=== PATIENT | male | born 1980 | race Caucasian/White ===

== ENCOUNTER 2018-03-29 15:40 | Emergency (ER) | payer BC ==
[~2018-03-29] VITALS: Ht 185.4 cm; Wt 112.0 kg
[2018-03-29] MEDS ORDERED: ACETAMINOPHEN 325 MG TAB PO ONE (16:15)
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
[2018-03-29 17:02] VITALS: BP 160/90
== END 2018-03-29 17:04 | disposition home or self-care (01) ==
LOC: FSED 15:40
DX: M54.6 Pain in thoracic spine (principal); M54.5 Low back pain; V53.5XXA Driver of pick-up truck or van injured in collision with car, pick-up truck or van in traffic accident, initial encounter; Y92.488 Other paved roadways as the place of occurrence of the external cause
CPT/HCPCS: 72072; 72100; 99283

== ENCOUNTER 2020-06-21 10:55 | Emergency (ER) | payer BC ==
[~2020-06-21] VITALS: Ht 185.4 cm; Wt 109.1 kg
[2020-06-21] MEDS ORDERED: PIPER-TAZ 3.375 GM 50 ML ONE (12:21)
[2020-06-21] MEDS ORDERED: VANCOMYCIN 1GM/NS 250 ML 500 ML ONE (12:21)
[2020-06-21] MEDS ORDERED: SODIUM CHLORIDE 0.9% 1000ML 1,000 ML ONE (12:29)
[2020-06-21] MEDS ORDERED: PIPER-TAZ 3.375 GM 50 ML IV ONE (12:30)
[2020-06-21] MEDS ORDERED: INSULIN REGULAR, HUMAN 100 UNIT/1 ML 3ML VIAL SQ ONE (12:30)
[2020-06-21] MEDS ORDERED: SODIUM CHLORIDE 0.9% 1000ML 1,000 ML IV SCH (12:30)
[2020-06-21] MEDS ORDERED: VANCOMYCIN 300 ML IV ONE (12:45)
[2020-06-21 13:11] LABS: BASOPHILS # (AUTO) 0.1 (0.0-0.1); BASOPHILS % 0.5 % (0.0-1.0); EOSINOPHILS # (AUTO) 0.2 (0.0-0.4); EOSINOPHILS % 1.4 % (0.0-6.0); HEMATOCRIT 38.5 % (38.2-49.6); HEMOGLOBIN 13.4 g/dL (14.0-18.0); LYMPHOCYTES # (AUTO) 1.6 (1.0-3.2); LYMPHOCYTES % 14.2 % (18.0-39.1); MEAN CORPUSCULAR HEMOGLOBIN 28.8 pg (28-32); MEAN CORPUSCULAR HGB CONC 34.8 g/dL (31-35); MEAN CORPUSCULAR VOLUME 82.6 fL (81-99); MONOCYTES % 8.4 % (4.4-11.3); NEUTROPHILS # (AUTO) 8.6 (2.1-6.9); PLATELET COUNT 370 x10e3/uL (140-360); RED BLOOD COUNT 4.66 x10e6/uL (4.3-5.7); RED CELL DISTRIBUTION WIDTH 11.8 % (11.7-14.4)
[2020-06-21] MEDS ORDERED: CLINDAMYCIN HC300 MG PO (15:13)
[2020-06-21] MEDS ORDERED: LEVOFLOXACIN250 MG PO (15:15)
[2020-06-21] MEDS ORDERED: TYLENOL # 31 EA PO (15:17)
[2020-06-21] MEDS ORDERED: NOVOLIN 70100 UNIT/3 SC (15:20)
[2020-06-21] MEDS ORDERED: BROMFED DM COU118 ML PO (15:22)
[2020-06-21] MEDS ORDERED: SODIUM CHLORIDE 0.9% 50ML 50 ML ONE (17:41)
[2020-06-21] MEDS ORDERED: IOPAMIDOL 370 MG/ML 200 ML INFUS..BTL INJ ONE (17:41)
== END 2020-06-21 15:46 | disposition home or self-care (01) ==
LOC: FSED 11:07
DX: L03.315 Cellulitis of perineum (principal); L03.317 Cellulitis of buttock; E11.65 Type 2 diabetes mellitus with hyperglycemia; E11.621 Type 2 diabetes mellitus with foot ulcer; M54.9 Dorsalgia, unspecified; G89.29 Other chronic pain
CPT/HCPCS: 36415; 72072; 72193; 82948; 85025; 87040; 99284; J1817; J2543; J3370; J7030; Q9967

== ENCOUNTER 2020-06-22 09:03 | Emergency (ER) | payer BC ==
[~2020-06-22] VITALS: Ht 185.4 cm; Wt 108.9 kg
[~2020-06-22 09:03] MED LIST: BROMFED DM COU118 ML PO; CLINDAMYCIN HC300 MG PO; LEVOFLOXACIN250 MG PO; NOVOLIN 70100 UNIT/3 SC; TYLENOL # 31 EA PO
[2020-06-22] MEDS ORDERED: PIPER-TAZ 3.375 GM 50 ML IV ONE (09:21)
[2020-06-22] MEDS ORDERED: ONDANSETRON HCL INJ 2MG/ML 2ML 2 MG/ML VIAL IV ONE (09:21)
[2020-06-22] MEDS ORDERED: MORPHINE SULFATE INJ 4 MG/ML INJ 1ML IV ONE (09:21)
[2020-06-22] MEDS ORDERED: SODIUM CHLORIDE 0.9% 1000ML 1,000 ML IV STA (09:21)
[2020-06-22] MEDS ORDERED: ONDANSETRON HCL INJ 2MG/ML 2ML 2 MG/ML VIAL IV PRN (09:30)
[2020-06-22] MEDS ORDERED: MORPHINE SULFATE INJ 4 MG/ML INJ 1ML IV PRN (09:30)
[2020-06-22] MEDS ORDERED: MORPHINE SULFATE 2 MG/ML SYR 1ML IV PRN (09:30)
[2020-06-22] MEDS ORDERED: ASPIRIN 81 MG CHEW TAB PO ONE (09:30)
[2020-06-22 09:45] LABS: BASOPHILS # (AUTO) 0.1 (0.0-0.1); BASOPHILS % 0.5 % (0.0-1.0); EOSINOPHILS # (AUTO) 0.2 (0.0-0.4); EOSINOPHILS % 1.7 % (0.0-6.0); HEMATOCRIT 39.3 % (38.2-49.6); HEMOGLOBIN 13.3 g/dL (14.0-18.0); LYMPHOCYTES # (AUTO) 1.6 (1.0-3.2); LYMPHOCYTES % 15.4 % (18.0-39.1); MEAN CORPUSCULAR HEMOGLOBIN 28.8 pg (28-32); MEAN CORPUSCULAR HGB CONC 33.8 g/dL (31-35); MEAN CORPUSCULAR VOLUME 85.1 fL (81-99); MONOCYTES # (AUTO) 0.9 (0.2-0.8); MONOCYTES % 8.3 % (4.4-11.3); NEUTROPHILS # (AUTO) 7.6 (2.1-6.9); NEUTROPHILS % 73.2 % (38.7-80.0); PLATELET COUNT 359 x10e3/uL (140-360); RED BLOOD COUNT 4.62 x10e6/uL (4.3-5.7); RED CELL DISTRIBUTION WIDTH 11.7 % (11.7-14.4)
[2020-06-22 09:59] LABS: ABG PCO2 36 mmHg (35-45); ABG PH 7.43 (7.35-7.45); ABG PO2 83 mmHg (80-105)
[2020-06-22 10:00] LABS: ABG HCO3 24 mmol/L (22-26); ABG TCO2 25
[2020-06-22] MEDS ORDERED: DEXTROSE 50% SYRINGE 50 ML IV PRN (10:00)
[2020-06-22 10:11] LABS: ALANINE AMINOTRANSFERASE 10 IU/L (0-55); ALBUMIN 3.1 g/dL (3.5-5.0); ALBUMIN/GLOBULIN RATIO 0.7 (0.8-2.0); ALKALINE PHOSPHATASE 89 IU/L (40-150); ANION GAP 13.7 mmol/L (8-16); BLOOD UREA NITROGEN 11 mg/dL (7-26); BUN/CREATININE RATIO 10 (6-25); CALCIUM 9.1 mg/dL (8.4-10.2); CARBON DIOXIDE 26 mmol/L (22-29); CHLORIDE 99 mmol/L (98-107); CREATININE, SERUM 1.05 mg/dL (0.72-1.25); EST GLOMERULAR FILTRATION RATE > 60 ML/MIN (60-); POTASSIUM 3.7 mmol/L (3.5-5.1); SODIUM 135 mmol/L (136-145)
[2020-06-22 10:12] LABS: GLUCOSE 429 mg/dL (74-118)
[2020-06-22 10:27] LABS: CREATINE KINASE 40 IU/L (30-200)
[2020-06-22] MEDS ORDERED: SODIUM CHLORIDE 0.9% 50ML 50 ML ONE (10:53)
[2020-06-22] MEDS ORDERED: IOPAMIDOL 370 MG/ML 200 ML INFUS..BTL INJ ONE (10:53)
[2020-06-22] MEDS ORDERED: INSULIN REGULAR, HUMAN 100 UNIT/1 ML 3ML VIAL SQ SCH (11:30)
[2020-06-22 12:48] VITALS: BP 142/86
== END 2020-06-22 12:59 | disposition other institution (70) ==
LOC: ER 09:10 → ERHOLD 09:48 → UNDOADMIN 09:48 → ER 12:59
DX: N49.3 Fournier gangrene (principal); E11.65 Type 2 diabetes mellitus with hyperglycemia; M54.9 Dorsalgia, unspecified; G89.29 Other chronic pain; Z20.828 Contact with and (suspected) exposure to other viral communicable diseases
CPT/HCPCS: 36415; 36600; 72193; 80053; 82550; 82553; 82805; 83605; 84484; 85025; 99284; J1817; J2270; J2405; J2543; J7030; Q9967; U0002

== ENCOUNTER 2020-08-22 23:59 | Emergency (ER) | payer BC ==
[~2020-08-22] VITALS: Ht 185.4 cm; Wt 108.9 kg
[2020-08-23] MEDS ORDERED: SODIUM CHLORIDE 0.9% 1000ML 1,000 ML IV SCH (01:30)
[2020-08-23] MEDS ORDERED: SODIUM CHLORIDE 0.9% 1000ML 1,000 ML ONE (01:32)
[2020-08-23] MEDS ORDERED: AMPICILLIN SOD/SULBACTAM 3 GM VIAL ONE (01:32)
[2020-08-23] MEDS ORDERED: CLINDAMYCIN HC300 MG PO (02:17)
[2020-08-23] MEDS ORDERED: LEVOFLOXACIN250 MG PO (02:24)
[2020-08-23] MEDS ORDERED: TRAZODONE HCL50 MG PO (02:25)
[2020-08-23] MEDS ORDERED: LANTUS100 UNIT/1 SQ (02:25)
[2020-08-23] MEDS ORDERED: NOVOLOG100 UNITS1 SQ (02:27)
[2020-08-23] MEDS ORDERED: AMPICILLIN SOD/SULBACTAM 1.5GM 1.5 G in AMPICILLIN SOD/SULBACTAM 1.5GM 50 ML IV ONE (06:00)
== END 2020-08-23 02:55 | disposition home or self-care (01) ==
LOC: FSED 08-23 00:41
DX: E11.621 Type 2 diabetes mellitus with foot ulcer (principal); E11.65 Type 2 diabetes mellitus with hyperglycemia; E11.22 Type 2 diabetes mellitus with diabetic chronic kidney disease; I12.9 Hypertensive chronic kidney disease with stage 1 through stage 4 chronic kidney disease, or unspecified chronic kidney disease; N18.9 Chronic kidney disease, unspecified; L97.429 Non-pressure chronic ulcer of left heel and midfoot with unspecified severity; L97.419 Non-pressure chronic ulcer of right heel and midfoot with unspecified severity; G47.00 Insomnia, unspecified; D64.9 Anemia, unspecified; Z76.0 Encounter for issue of repeat prescription
CPT/HCPCS: 73630; 80053; 81003; 85025; 99284; J0295 ×2; J7030

== ENCOUNTER → 2020-11-13 | Outpatient (CLI) | payer BC ==
[~2020-11-13] MED LIST changes: +LANTUS100 UNIT/1 SQ; +NOVOLOG100 UNITS1 SQ; +TRAZODONE HCL50 MG PO
== END ==
LOC: US 13:13
PROVIDERS: ATTEND Internal Medicine
DX: R19.01 Right upper quadrant abdominal swelling, mass and lump (principal); K76.0 Fatty (change of) liver, not elsewhere classified
CPT/HCPCS: 71046; 76700

== ENCOUNTER 2021-01-18 07:45 | Emergency (ER) | payer BC ==
[~2021-01-18] VITALS: Ht 185.4 cm; Wt 108.9 kg
[2021-01-18] MEDS ORDERED: CLINDAMYCIN PHOS 900MG/ 50ML 50 ML IV STA (07:59)
[2021-01-18] MEDS ORDERED: KETOROLAC TROMETHAMINE 30 MG/ML VIAL IV STA (08:03)
[2021-01-18] MEDS ORDERED: DEXAMETHASONE SOD PHOS 10 MG/1 ML VIAL IV ONE (08:15)
[2021-01-18] MEDS ORDERED: ONDANSETRON HCL INJ 2MG/ML 2ML 2 MG/ML VIAL IV STA (08:24)
[2021-01-18 08:27] LABS: BASOPHILS # (AUTO) 0.1 (0.0-0.1); BASOPHILS % 0.5 % (0.0-1.0); EOSINOPHILS # (AUTO) 0.3 (0.0-0.4); EOSINOPHILS % 1.7 % (0.0-6.0); HEMATOCRIT 30.7 % (38.2-49.6); HEMOGLOBIN 10.5 g/dL (14.0-18.0); LYMPHOCYTES # (AUTO) 2.1 (1.0-3.2); LYMPHOCYTES % 11.8 % (18.0-39.1); MEAN CORPUSCULAR HEMOGLOBIN 28.3 pg (28-32); MEAN CORPUSCULAR HGB CONC 34.2 g/dL (31-35); MEAN CORPUSCULAR VOLUME 82.7 fL (81-99); MONOCYTES # (AUTO) 1.3 (0.2-0.8); MONOCYTES % 7.4 % (4.4-11.3); NEUTROPHILS # (AUTO) 13.6 (2.1-6.9); PLATELET COUNT 370 x10e3/uL (140-360); RED BLOOD COUNT 3.71 x10e6/uL (4.3-5.7); RED CELL DISTRIBUTION WIDTH 12.4 % (11.7-14.4)
[2021-01-18 08:46] LABS: ANION GAP 15.7 mmol/L (8-16); CALCIUM 9.1 mg/dL (8.4-10.2); CREATININE, SERUM 1.75 mg/dL (0.72-1.25); POTASSIUM 3.7 mmol/L (3.5-5.1)
[2021-01-18] MEDS ORDERED: CLEOCIN HCL150 MG PO (09:23)
[2021-01-18] MEDS ORDERED: ONDANSETRON ODT4 MG PO (09:23)
[2021-01-18] MEDS ORDERED: CEFDINIR300 MG PO (09:23)
[2021-01-18] MEDS ORDERED: LIDOPATCH1 EACH TOP (09:23)
[2021-01-18] MEDS ORDERED: CEFEPIME 1 GM in SODIUM CHLORIDE 0.9% 50ML 50 ML IV SCH (21:00)
== END 2021-01-18 10:18 | disposition home or self-care (01) ==
LOC: ER 08:10
DX: E11.621 Type 2 diabetes mellitus with foot ulcer (principal); L97.519 Non-pressure chronic ulcer of other part of right foot with unspecified severity; Z79.4 Long term (current) use of insulin; M54.9 Dorsalgia, unspecified
CPT/HCPCS: 36415; 72070; 72100; 73620; 80048; 85025; 99284; J0692; J1100; J1885; J2405

== ENCOUNTER 2021-02-07 08:41 | Emergency (ER) | payer BC ==
[~2021-02-07] VITALS: Ht 185.4 cm; Wt 117.9 kg
[~2021-02-07 08:41] MED LIST changes: +CEFDINIR300 MG PO; +CLEOCIN HCL150 MG PO; +LIDOPATCH1 EACH TOP; +ONDANSETRON ODT4 MG PO
[2021-02-07] MEDS ORDERED: DOXYCYCLINE HY100 MG PO (09:13)
[2021-02-07] MEDS ORDERED: PROBIOTIC & AC1 EACH PO (09:13)
[2021-02-07] MEDS ORDERED: CLEOCIN HCL300 MG PO (09:13)
[2021-02-07] MEDS ORDERED: CLINDAMYCIN PHOS 900MG/ 50ML 50 ML IV ONE (09:15)
[2021-02-07] MEDS ORDERED: CLINDAMYCIN PHOS 300MG/2ML VIAL ONE ×2 (09:21→09:23)
[2021-02-07] MEDS ORDERED: CLINDAMYCIN 300MG 50 ML IV ONE (09:23)
== END 2021-02-07 09:57 | disposition home or self-care (01) ==
LOC: FSED 09:00
DX: E11.621 Type 2 diabetes mellitus with foot ulcer (principal); E11.65 Type 2 diabetes mellitus with hyperglycemia; I12.9 Hypertensive chronic kidney disease with stage 1 through stage 4 chronic kidney disease, or unspecified chronic kidney disease; Z79.4 Long term (current) use of insulin; E11.22 Type 2 diabetes mellitus with diabetic chronic kidney disease; N18.9 Chronic kidney disease, unspecified
CPT/HCPCS: 80053; 85025; 99283

== ENCOUNTER 2021-02-09 15:16 | Inpatient (IN) | payer BC ==
[~2021-02-09] VITALS: Ht 185.4 cm; Wt 117.9 kg
[~2021-02-09 15:16] MED LIST changes: +CLEOCIN HCL300 MG PO; +DOXYCYCLINE HY100 MG PO; +PROBIOTIC & AC1 EACH PO
[2021-02-09] MEDS ORDERED: PIPERACILLIN/TAZOBACTAM 3.375 GM in SODIUM CHLORIDE 0.9% 50ML 50 ML IV SCH (18:00)
[2021-02-09] MEDS ORDERED: DEXTROSE 50% SYRINGE 50 ML IV PRN ×2 (18:00→19:15)
[2021-02-09] MEDS ORDERED: LINEZOLID 600 MG/D5W 300ML 300 ML IV SCH (18:00)
[2021-02-09 18:20] VITALS: BP 167/73
[2021-02-09 18:21] VITALS: BP 167/73
[2021-02-09 18:47] VITALS: BP 167/73
[2021-02-09] MEDS ORDERED: ACETAMINOPHEN 325 MG TAB PO PRN (19:15)
[2021-02-09] MEDS ORDERED: SODIUM CHLORIDE 0.9% 1000ML 1,000 ML IV SCH (19:15)
[2021-02-09 19:26] LABS: BASOPHILS # (AUTO) 0.1 (0.0-0.1); BASOPHILS % 0.4 % (0.0-1.0); EOSINOPHILS # (AUTO) 0.2 (0.0-0.4); EOSINOPHILS % 1.1 % (0.0-6.0); HEMATOCRIT 25.7 % (38.2-49.6); HEMOGLOBIN 8.4 g/dL (14.0-18.0); LYMPHOCYTES # (AUTO) 1.4 (1.0-3.2); LYMPHOCYTES % 8.6 % (18.0-39.1); MEAN CORPUSCULAR HEMOGLOBIN 27.8 pg (28-32); MEAN CORPUSCULAR HGB CONC 32.7 g/dL (31-35); MEAN CORPUSCULAR VOLUME 85.1 fL (81-99); MONOCYTES # (AUTO) 1.9 (0.2-0.8); MONOCYTES % 11.6 % (4.4-11.3); NEUTROPHILS # (AUTO) 12.3 (2.1-6.9); NEUTROPHILS % 77.4 % (38.7-80.0); PLATELET COUNT 356 x10e3/uL (140-360); RED BLOOD COUNT 3.02 x10e6/uL (4.3-5.7); RED CELL DISTRIBUTION WIDTH 12.8 % (11.7-14.4)
[2021-02-09 19:49] LABS: ALBUMIN 2.8 g/dL (3.5-5.0); ANION GAP 15.7 mmol/L (8-16); CALCIUM 8.3 mg/dL (8.4-10.2); CREATININE, SERUM 1.89 mg/dL (0.72-1.25); POTASSIUM 3.7 mmol/L (3.5-5.1)
[2021-02-09 19:50] LABS: ALBUMIN/GLOBULIN RATIO 0.6 (0.8-2.0)
[2021-02-09 19:54] VITALS: BP 154/62
[2021-02-09] MEDS: PIPERACILLIN/TAZOBACTAM 3.375 GM in SODIUM CHLORIDE 0.9% 50ML 50 ML IV SCH (20:00)
[2021-02-09] MEDS: LINEZOLID 600 MG/D5W 300ML 300 ML IV SCH (20:07)
[2021-02-09 21:00] VITALS: BP 154/62
[2021-02-09] MEDS: INSULIN LISPRO 100 UNIT/1 ML 3ML VIAL SQ SCH (21:00)
[2021-02-09] MEDS ORDERED: INSULIN LISPRO 100 UNIT/1 ML 3ML VIAL SQ SCH (21:00)
[2021-02-10] VITALS (7 sets, daily range): BP systolic 141–166; BP diastolic 63–81
[2021-02-10] MEDS: PIPERACILLIN/TAZOBACTAM 3.375 GM in SODIUM CHLORIDE 0.9% 50ML 50 ML IV SCH ×4 (02:00→20:00)
[2021-02-10 05:11] LABS: BASOPHILS # (AUTO) 0.1 (0.0-0.1); BASOPHILS % 0.5 % (0.0-1.0); EOSINOPHILS # (AUTO) 0.4 (0.0-0.4); EOSINOPHILS % 2.5 % (0.0-6.0); HEMOGLOBIN 8.6 g/dL (14.0-18.0); LYMPHOCYTES # (AUTO) 1.7 (1.0-3.2); LYMPHOCYTES % 9.6 % (18.0-39.1); MEAN CORPUSCULAR HEMOGLOBIN 28.1 pg (28-32); MEAN CORPUSCULAR HGB CONC 33.1 g/dL (31-35); MONOCYTES % 11.5 % (4.4-11.3); PLATELET COUNT 384 x10e3/uL (140-360); RED BLOOD COUNT 3.06 x10e6/uL (4.3-5.7); RED CELL DISTRIBUTION WIDTH 12.9 % (11.7-14.4)
[2021-02-10 05:34] LABS: ALBUMIN 2.7 g/dL (3.5-5.0); ALBUMIN/GLOBULIN RATIO 0.6 (0.8-2.0); ANION GAP 15.7 mmol/L (8-16); CALCIUM 8.4 mg/dL (8.4-10.2); CREATININE, SERUM 1.86 mg/dL (0.72-1.25); POTASSIUM 3.7 mmol/L (3.5-5.1)
[2021-02-10] MEDS ORDERED: DEXAMETHASONE SOD PHOS INJ 4 MG/ML VIAL ONE (07:24)
[2021-02-10] MEDS ORDERED: BUPIVACAINE HCL 0.5% INJ 30 ML VIAL INJ ONE (07:24)
[2021-02-10] MEDS: INSULIN LISPRO 100 UNIT/1 ML 3ML VIAL SQ SCH ×4 (07:30→21:00)
[2021-02-10] MEDS: INSULIN ASPART 70/30 100 UNITS/ML VIAL SC SCH ×3 (07:30→16:30)
[2021-02-10] MEDS ORDERED: BENAZEPRIL HCL 10 MG TAB PO SCH (09:00)
[2021-02-10] MEDS ORDERED: AMLODIPINE BESYLATE 10 MG TAB PO SCH (09:00)
[2021-02-10] MEDS ORDERED: METOCLOPRAMIDE HCL 10 MG/2ML VIAL ONE (11:55)
[2021-02-10] MEDS ORDERED: PROPOFOL IV EMULSION 10 MG/ML 20 ML VIAL ONE (11:55)
[2021-02-10] MEDS ORDERED: POVIDONE IODINE 0.05% 0.05 % ML PO ONE (11:55)
[2021-02-10] MEDS ORDERED: SEVOFLURANE INHAL SOLN 250 ML PEN BTL ONE (11:55)
[2021-02-10] MEDS ORDERED: ONDANSETRON HCL INJ 2MG/ML 2ML 2 MG/ML VIAL ONE (11:55)
[2021-02-10] MEDS ORDERED: LIDOCAINE HCL 2% LOCAL INJ 5 ML SDV VIAL INJ ONE (11:55)
[2021-02-10] MEDS ORDERED: FENTANYL CITRATE/PF 100MCG/2 ML INJ ONE (12:11)
[2021-02-10] MEDS ORDERED: MIDAZOLAM HCL 2 MG/2 ML VIAL ONE (12:11)
[2021-02-10] MEDS: LINEZOLID 600 MG/D5W 300ML 300 ML IV SCH ×2 (12:25→21:00)
[2021-02-10] MEDS: HYDROMORPHONE 1MG/1ML INJ IV PRN ×3 (14:26→22:02)
[2021-02-10] MEDS: ONDANSETRON HCL INJ 2MG/ML 2ML 2 MG/ML VIAL IV PRN ×2 (14:28→22:03)
[2021-02-10] MEDS: PROMETHAZINE 12.5MG/ NACL 0.9% 12.5 MG/50 ML BAG IV PRN (18:16)
[2021-02-11] VITALS (8 sets, daily range): BP systolic 132–147; BP diastolic 70–84
[2021-02-11] MEDS: PIPERACILLIN/TAZOBACTAM 3.375 GM in SODIUM CHLORIDE 0.9% 50ML 50 ML IV SCH ×4 (01:38→19:56)
[2021-02-11] MEDS: PROMETHAZINE 12.5MG/ NACL 0.9% 12.5 MG/50 ML BAG IV PRN ×2 (02:29→13:25)
[2021-02-11 05:16] LABS: BASOPHILS # (AUTO) 0.1 (0.0-0.1); BASOPHILS % 0.5 % (0.0-1.0); EOSINOPHILS # (AUTO) 0.4 (0.0-0.4); EOSINOPHILS % 2.5 % (0.0-6.0); HEMOGLOBIN 7.8 g/dL (14.0-18.0); LYMPHOCYTES # (AUTO) 2.1 (1.0-3.2); LYMPHOCYTES % 13.9 % (18.0-39.1); MEAN CORPUSCULAR HEMOGLOBIN 27.9 pg (28-32); MEAN CORPUSCULAR HGB CONC 32.5 g/dL (31-35); MEAN CORPUSCULAR VOLUME 85.7 fL (81-99); MONOCYTES # (AUTO) 1.4 (0.2-0.8); MONOCYTES % 9.4 % (4.4-11.3); NEUTROPHILS # (AUTO) 10.8 (2.1-6.9); NEUTROPHILS % 72.5 % (38.7-80.0); PLATELET COUNT 424 x10e3/uL (140-360); RED CELL DISTRIBUTION WIDTH 13.2 % (11.7-14.4)
[2021-02-11 05:54] LABS: ANION GAP 15.7 mmol/L (8-16); CALCIUM 8.4 mg/dL (8.4-10.2); CREATININE, SERUM 2.21 mg/dL (0.72-1.25); POTASSIUM 3.7 mmol/L (3.5-5.1)
[2021-02-11] MEDS: INSULIN LISPRO 100 UNIT/1 ML 3ML VIAL SQ SCH ×4 (07:30→21:00)
[2021-02-11] MEDS ORDERED: TRESIBA FL100 UNIT/1 SQ (07:39)
[2021-02-11] MEDS: INSULIN ASPART 70/30 100 UNITS/ML VIAL SC SCH ×3 (09:00→15:55)
[2021-02-11] MEDS: SODIUM CHLORIDE 0.9% 1000ML 1,000 ML IV SCH ×2 (09:37→15:30)
[2021-02-11] MEDS: HYDROMORPHONE 1MG/1ML INJ IV PRN ×2 (09:38→21:54)
[2021-02-11] MEDS: LINEZOLID 600 MG/D5W 300ML 300 ML IV SCH ×2 (10:30→21:54)
[2021-02-11] MEDS: HYDROCODONE/APAP 7.5MG-325MG 1 EA TAB PO PRN ×2 (13:25→18:35)
[2021-02-11] MEDS: ONDANSETRON HCL INJ 2MG/ML 2ML 2 MG/ML VIAL IV PRN (21:54)
[2021-02-12] VITALS (9 sets, daily range): BP systolic 119–181; BP diastolic 63–93
[2021-02-12] MEDS ORDERED: FUROSEMIDE INJ 10 MG/ML 4 ML VIAL ONE (00:26)
[2021-02-12] MEDS ORDERED: FUROSEMIDE INJ 10 MG/ML 4 ML VIAL IV ONE ×2 (00:30→09:00)
[2021-02-12] MEDS: PIPERACILLIN/TAZOBACTAM 3.375 GM in SODIUM CHLORIDE 0.9% 50ML 50 ML IV SCH ×4 (01:55→20:26)
[2021-02-12] MEDS: PROMETHAZINE 12.5MG/ NACL 0.9% 12.5 MG/50 ML BAG IV PRN (05:43)
[2021-02-12 06:20] LABS: BASOPHILS # (AUTO) 0.1 (0.0-0.1); BASOPHILS % 0.6 % (0.0-1.0); EOSINOPHILS # (AUTO) 0.6 (0.0-0.4); EOSINOPHILS % 5.3 % (0.0-6.0); HEMATOCRIT 23.4 % (38.2-49.6); HEMOGLOBIN 7.5 g/dL (14.0-18.0); LYMPHOCYTES # (AUTO) 1.5 (1.0-3.2); LYMPHOCYTES % 13.3 % (18.0-39.1); MEAN CORPUSCULAR HEMOGLOBIN 27.7 pg (28-32); MEAN CORPUSCULAR HGB CONC 32.1 g/dL (31-35); MEAN CORPUSCULAR VOLUME 86.3 fL (81-99); MONOCYTES % 8.9 % (4.4-11.3); NEUTROPHILS # (AUTO) 7.7 (2.1-6.9); NEUTROPHILS % 70.4 % (38.7-80.0); PLATELET COUNT 469 x10e3/uL (140-360); RED BLOOD COUNT 2.71 x10e6/uL (4.3-5.7); RED CELL DISTRIBUTION WIDTH 13.4 % (11.7-14.4)
[2021-02-12 06:35] LABS: ANION GAP 14.9 mmol/L (8-16); CALCIUM 7.9 mg/dL (8.4-10.2); CREATININE, SERUM 2.05 mg/dL (0.72-1.25); POTASSIUM 3.9 mmol/L (3.5-5.1)
[2021-02-12] MEDS: INSULIN ASPART 70/30 100 UNITS/ML VIAL SC SCH ×3 (07:30→16:30)
[2021-02-12] MEDS: INSULIN LISPRO 100 UNIT/1 ML 3ML VIAL SQ SCH ×4 (07:30→21:00)
[2021-02-12] MEDS: HYDROMORPHONE 1MG/1ML INJ IV PRN ×6 (08:38→20:26)
[2021-02-12] MEDS: LINEZOLID 600 MG/D5W 300ML 300 ML IV SCH ×2 (09:20→21:34)
[2021-02-12 17:55] LABS: TOTAL VOLUME, URINE 3200 ml/24hr (800-2000)
[2021-02-12 18:01] LABS: CLARITY,URINE CLEAR (CLEAR); COLOR,URINE YELLOW (YELLOW); KETONES,URINE NEGATIVE (NEGATIVE); LEUKOCYTE ESTERASE ,URINE NEGATIVE (NEGATIVE); NITRITE,URINE NEGATIVE (NEGATIVE); PROTEIN,URINE DIPSTICK NEGATIVE (NEGATIVE); URINE UROBILINOGEN 0.2 mg/dL (0.2 - 1)
[2021-02-12 18:20] LABS: TOTAL PROTEIN 24HR, URINE 460.8 mg/24hr (50-100); TOTAL PROTEIN, URINE 14.4 mg/dL (1-14)
[2021-02-12 18:22] LABS: BACTERIA,URINE RARE /HPF; RBC,URINE 0-5 /HPF (0-5); URIC ACID CRYSTALS,URINE MANY (FEW)
[2021-02-12] MEDS: ZOLPIDEM TARTRATE 10 MG TAB PO PRN (20:26)
[2021-02-12] MEDS: ONDANSETRON HCL INJ 2MG/ML 2ML 2 MG/ML VIAL IV PRN (20:26)
[2021-02-13] VITALS (7 sets, daily range): BP systolic 152–170; BP diastolic 65–90
[2021-02-13] MEDS: PIPERACILLIN/TAZOBACTAM 3.375 GM in SODIUM CHLORIDE 0.9% 50ML 50 ML IV SCH ×4 (01:38→20:42)
[2021-02-13] MEDS: HYDROMORPHONE 1MG/1ML INJ IV PRN ×4 (06:05→20:47)
[2021-02-13 06:20] LABS: BASOPHILS # (AUTO) 0.1 (0.0-0.1); BASOPHILS % 0.5 % (0.0-1.0); EOSINOPHILS # (AUTO) 0.6 (0.0-0.4); EOSINOPHILS % 4.6 % (0.0-6.0); HEMATOCRIT 24.9 % (38.2-49.6); LYMPHOCYTES # (AUTO) 1.5 (1.0-3.2); LYMPHOCYTES % 12.1 % (18.0-39.1); MEAN CORPUSCULAR HEMOGLOBIN 27.7 pg (28-32); MEAN CORPUSCULAR HGB CONC 32.1 g/dL (31-35); MEAN CORPUSCULAR VOLUME 86.2 fL (81-99); MONOCYTES % 8.2 % (4.4-11.3); NEUTROPHILS # (AUTO) 8.8 (2.1-6.9); NEUTROPHILS % 72.8 % (38.7-80.0); PLATELET COUNT 490 x10e3/uL (140-360); RED BLOOD COUNT 2.89 x10e6/uL (4.3-5.7); RED CELL DISTRIBUTION WIDTH 13.2 % (11.7-14.4)
[2021-02-13 06:37] LABS: ALBUMIN 2.6 g/dL (3.5-5.0); ALBUMIN/GLOBULIN RATIO 0.5 (0.8-2.0); ANION GAP 15.7 mmol/L (8-16); CALCIUM 8.5 mg/dL (8.4-10.2); CREATININE, SERUM 2.03 mg/dL (0.72-1.25); POTASSIUM 3.7 mmol/L (3.5-5.1)
[2021-02-13 06:59] LABS: % IRON SATURATION 8 % (15-50); IRON 13 ug/dL (65-175); TOTAL IRON BINDING CAPACITY 171 ug/dL (261-478); TRANSFERRIN 122 mg/dL (174-364)
[2021-02-13 07:02] LABS: PHOSPHORUS 3.9 MG/DL (2.3-4.7)
[2021-02-13] MEDS: INSULIN LISPRO 100 UNIT/1 ML 3ML VIAL SQ SCH ×4 (07:30→20:07)
[2021-02-13] MEDS: INSULIN ASPART 70/30 100 UNITS/ML VIAL SC SCH ×3 (07:30→16:30)
[2021-02-13] MEDS: LINEZOLID 600 MG/D5W 300ML 300 ML IV SCH ×2 (10:00→22:18)
[2021-02-13] MEDS ORDERED: FUROSEMIDE INJ 10 MG/ML 4 ML VIAL IV ONE (10:15)
[2021-02-13] MEDS: ONDANSETRON HCL INJ 2MG/ML 2ML 2 MG/ML VIAL IV PRN ×2 (10:15→16:45)
[2021-02-13] MEDS ORDERED: ALTEPLASE RECOMBINANT 2 MG/2 ML VIAL IV PRN (10:30)
[2021-02-13] MEDS: SODIUM FERRIC GLUCONATE COMPLX 125 MG in SODIUM CHLORIDE 0.9% 100 ML 100 ML IV SCH (11:00)
[2021-02-13] MEDS ORDERED: SODIUM CHLORIDE 0.9% 250ML 250 ML ONE (20:40)
[2021-02-13] MEDS: FUROSEMIDE INJ 10 MG/ML 4 ML VIAL IV SCH (20:42)
[2021-02-13] MEDS: PROMETHAZINE 12.5MG/ NACL 0.9% 12.5 MG/50 ML BAG IV PRN (20:47)
[2021-02-13 20:58] LABS: BASOPHILS # (AUTO) 0.1 (0.0-0.1); BASOPHILS % 0.5 % (0.0-1.0); EOSINOPHILS # (AUTO) 0.5 (0.0-0.4); EOSINOPHILS % 4.3 % (0.0-6.0); HEMATOCRIT 26.7 % (38.2-49.6); HEMOGLOBIN 8.7 g/dL (14.0-18.0); LYMPHOCYTES # (AUTO) 2.1 (1.0-3.2); LYMPHOCYTES % 18.2 % (18.0-39.1); MEAN CORPUSCULAR HEMOGLOBIN 27.8 pg (28-32); MEAN CORPUSCULAR HGB CONC 32.6 g/dL (31-35); MEAN CORPUSCULAR VOLUME 85.3 fL (81-99); MONOCYTES # (AUTO) 1.1 (0.2-0.8); NEUTROPHILS # (AUTO) 7.5 (2.1-6.9); NEUTROPHILS % 65.3 % (38.7-80.0); PLATELET COUNT 529 x10e3/uL (140-360); RED BLOOD COUNT 3.13 x10e6/uL (4.3-5.7); RED CELL DISTRIBUTION WIDTH 13.3 % (11.7-14.4)
[2021-02-13 21:16] LABS: ANION GAP 15.3 mmol/L (8-16); CALCIUM 8.3 mg/dL (8.4-10.2); CREATININE, SERUM 1.92 mg/dL (0.72-1.25); POTASSIUM 3.3 mmol/L (3.5-5.1)
[2021-02-13] MEDS: ZOLPIDEM TARTRATE 10 MG TAB PO PRN (22:18)
[2021-02-14] VITALS (7 sets, daily range): BP systolic 135–159; BP diastolic 57–84
[2021-02-14] MEDS: PIPERACILLIN/TAZOBACTAM 3.375 GM in SODIUM CHLORIDE 0.9% 50ML 50 ML IV SCH ×4 (01:55→19:55)
[2021-02-14] MEDS: ONDANSETRON HCL INJ 2MG/ML 2ML 2 MG/ML VIAL IV PRN ×3 (01:55→19:56)
[2021-02-14] MEDS: HYDROMORPHONE 1MG/1ML INJ IV PRN ×4 (01:55→19:56)
[2021-02-14] MEDS: PROMETHAZINE 12.5MG/ NACL 0.9% 12.5 MG/50 ML BAG IV PRN (05:59)
[2021-02-14 07:09] LABS: BASOPHILS # (AUTO) 0.1 (0.0-0.1); BASOPHILS % 0.7 % (0.0-1.0); EOSINOPHILS # (AUTO) 0.4 (0.0-0.4); EOSINOPHILS % 4.4 % (0.0-6.0); HEMATOCRIT 27.5 % (38.2-49.6); HEMOGLOBIN 8.6 g/dL (14.0-18.0); LYMPHOCYTES # (AUTO) 2.2 (1.0-3.2); LYMPHOCYTES % 23.2 % (18.0-39.1); MEAN CORPUSCULAR HEMOGLOBIN 27.2 pg (28-32); MEAN CORPUSCULAR HGB CONC 31.3 g/dL (31-35); MONOCYTES % 10.4 % (4.4-11.3); NEUTROPHILS # (AUTO) 5.7 (2.1-6.9); NEUTROPHILS % 59.2 % (38.7-80.0); PLATELET COUNT 518 x10e3/uL (140-360); RED BLOOD COUNT 3.16 x10e6/uL (4.3-5.7); RED CELL DISTRIBUTION WIDTH 13.4 % (11.7-14.4)
[2021-02-14] MEDS: INSULIN LISPRO 100 UNIT/1 ML 3ML VIAL SQ SCH ×4 (07:30→21:37)
[2021-02-14] MEDS: INSULIN ASPART 70/30 100 UNITS/ML VIAL SC SCH ×3 (07:30→15:59)
[2021-02-14 07:43] LABS: ALBUMIN 2.6 g/dL (3.5-5.0); ALBUMIN/GLOBULIN RATIO 0.6 (0.8-2.0); ANION GAP 15.4 mmol/L (8-16); CALCIUM 8.4 mg/dL (8.4-10.2); CREATININE, SERUM 2.07 mg/dL (0.72-1.25); POTASSIUM 3.4 mmol/L (3.5-5.1)
[2021-02-14] MEDS: FUROSEMIDE INJ 10 MG/ML 4 ML VIAL IV SCH (08:06)
[2021-02-14] MEDS ORDERED: POTASSIUM CHLORIDE 20 MEQ TAB CR PO STA (08:43)
[2021-02-14] MEDS: LINEZOLID 600 MG/D5W 300ML 300 ML IV SCH ×2 (10:00→21:02)
[2021-02-14] MEDS: SODIUM FERRIC GLUCONATE COMPLX 125 MG in SODIUM CHLORIDE 0.9% 100 ML 100 ML IV SCH (11:21)
[2021-02-14] MEDS ORDERED: POTASSIUM CHLORIDE 10MEQ EA PO ONE (12:45)
[2021-02-14] MEDS: ZOLPIDEM TARTRATE 10 MG TAB PO PRN (19:56)
[2021-02-15] VITALS: BP 143/71
[2021-02-15] MEDS: PROMETHAZINE 12.5MG/ NACL 0.9% 12.5 MG/50 ML BAG IV PRN ×2 (01:00→11:11)
[2021-02-15] MEDS: PIPERACILLIN/TAZOBACTAM 3.375 GM in SODIUM CHLORIDE 0.9% 50ML 50 ML IV SCH ×2 (01:00→08:00)
[2021-02-15] MEDS: HYDROMORPHONE 1MG/1ML INJ IV PRN ×3 (01:01→11:11)
[2021-02-15 04:00] VITALS: BP 139/65
[2021-02-15 04:49] VITALS: BP 143/71
[2021-02-15] MEDS: ONDANSETRON HCL INJ 2MG/ML 2ML 2 MG/ML VIAL IV PRN (05:44)
[2021-02-15 06:47] LABS: ANION GAP 14.4 mmol/L (8-16); CALCIUM 8.4 mg/dL (8.4-10.2); CREATININE, SERUM 2.36 mg/dL (0.72-1.25); POTASSIUM 3.4 mmol/L (3.5-5.1)
[2021-02-15 07:48] VITALS: BP 144/65
[2021-02-15 08:11] VITALS: BP 144/65
[2021-02-15] MEDS: INSULIN ASPART 70/30 100 UNITS/ML VIAL SC SCH ×2 (08:29→11:30)
[2021-02-15] MEDS: INSULIN LISPRO 100 UNIT/1 ML 3ML VIAL SQ SCH ×2 (08:29→11:30)
[2021-02-15] MEDS ORDERED: FUROSEMIDE INJ 10 MG/ML 4 ML VIAL IV SCH (09:00)
[2021-02-15] MEDS: LINEZOLID 600 MG/D5W 300ML 300 ML IV SCH (09:00)
[2021-02-15] MEDS ORDERED: POTASSIUM CHLORIDE 10MEQ EA PO ONE (09:45)
[2021-02-15] MEDS ORDERED: DAPTOMYCIN 500mg 10ML 500 MG in SODIUM CHLORIDE 0.9% 100 ML IV ONE (10:00)
[2021-02-15] MEDS: SODIUM FERRIC GLUCONATE COMPLX 125 MG in SODIUM CHLORIDE 0.9% 100 ML 100 ML IV SCH (11:00)
[2021-02-15 11:58] VITALS: BP 164/71
[2021-02-15 15:12] LABS: ALPHA 2 GLOBULIN URINE PEP 18.2 % (.)
== END 2021-02-15 13:24 | disposition home or self-care (01) | DRG 853 ==
LOC: MED/SURG3 17:27
PROVIDERS: ADMIT Internal Medicine; ATTEND Internal Medicine
PROC: 0JBQ0ZZ Excision of Right Foot Subcutaneous Tissue and Fascia, Open Approach (ICD-10-PCS; principal; 2021-02-10 07:30)
PROC: 02HV33Z Insertion of Infusion Device into Superior Vena Cava, Percutaneous Approach (ICD-10-PCS; 2021-02-12)
DX: A41.9 Sepsis, unspecified organism (principal); N17.0 Acute kidney failure with tubular necrosis; L97.518 Non-pressure chronic ulcer of other part of right foot with other specified severity; N17.9 Acute kidney failure, unspecified; E11.52 Type 2 diabetes mellitus with diabetic peripheral angiopathy with gangrene; I96 Gangrene, not elsewhere classified; L03.115 Cellulitis of right lower limb; I13.0 Hypertensive heart and chronic kidney disease with heart failure and stage 1 through stage 4 chronic kidney disease, or unspecified chronic kidney disease; E11.621 Type 2 diabetes mellitus with foot ulcer; Z79.899 Other long term (current) drug therapy; E78.5 Hyperlipidemia, unspecified; D63.1 Anemia in chronic kidney disease; D50.9 Iron deficiency anemia, unspecified; E11.22 Type 2 diabetes mellitus with diabetic chronic kidney disease; N18.30 Chronic kidney disease, stage 3 unspecified; I50.9 Heart failure, unspecified; E66.9 Obesity, unspecified; Z68.34 Body mass index [BMI] 34.0-34.9, adult; F32.9 Major depressive disorder, single episode, unspecified
CPT/HCPCS: 36415; 36569; 71045; 76770; 80048; 80053; 81001; 81050; 82270; 82948; 83036; 83540; 83605; 83735; 83880; 84100; 84156; 84165; 84166; 84466; 84550; 85025; 87040; 87071; 87075; 87205; 93005; 93306; 97139; J1100; J1170; J1815; J1940; J2001; J2020; J2250; J2405; J2543; J2550; J2765; J2916; J2997; J3010; J7030; J7050

== ENCOUNTER → 2021-02-18 | Outpatient (CLI) | payer BC ==
[~2021-02-18] MED LIST changes: +TRESIBA FL100 UNIT/1 SQ
== END ==
LOC: DX 11:37
PROVIDERS: ATTEND Internal Medicine Infectious Disease
DX: Z45.2 Encounter for adjustment and management of vascular access device (principal); L02.612 Cutaneous abscess of left foot
CPT/HCPCS: 36569; 71045

== ENCOUNTER → 2022-05-03 | Outpatient (CLI) | payer BC | LOC: RAD 15:24 | PROVIDERS: ATTEND Internal Medicine | DX: I13.0 Hypertensive heart and chronic kidney disease with heart failure and stage 1 through stage 4 chronic kidney disease, or unspecified chronic kidney disease (principal); I50.30 Unspecified diastolic (congestive) heart failure | CPT/HCPCS: 71046 ==

== ENCOUNTER 2022-06-14 18:28 | Emergency (ER) | payer BC ==
[~2022-06-14] VITALS: Ht 185.4 cm; Wt 122.5 kg
[2022-06-14] MEDS ORDERED: SODIUM CHLORIDE 0.9% 1000ML 1,000 ML IV STA ×2 (19:13)
[2022-06-14] MEDS ORDERED: ONDANSETRON HCL INJ 2MG/ML 2ML 2 MG/ML VIAL IV ONE (19:15)
[2022-06-14] MEDS ORDERED: FAMOTIDINE 20 MG/2 ML VIAL IV ONE ×2 (19:15→19:29)
[2022-06-14] MEDS ORDERED: SODIUM CHLORIDE 0.9% 1000ML 2,000 ML ONE (19:28)
[2022-06-14] MEDS ORDERED: ONDANSETRON HCL INJ 2MG/ML 2ML 2 MG/ML VIAL ONE (19:28)
[2022-06-14] MEDS ORDERED: ONDANSETRON ODT4 MG PO (20:58)
[2022-06-14] MEDS ORDERED: PANTOPRAZOLE SO20 MG PO (20:58)
[2022-06-14] MEDS ORDERED: DICYCLOMINE HCL20 MG PO (20:58)
[2022-06-14] MEDS ORDERED: PROMETHAZINE 25MG/ NS 50ML (IV) IV ONE (21:15)
[2022-06-14] MEDS ORDERED: PROMETHAZINE HCL (IM) 25 MG/ML VIAL IM ONE (21:28)
[2022-06-15] MEDS ORDERED: FAMOTIDINE40 MG PO (16:15)
[2022-06-15] MEDS ORDERED: LOSARTAN POTASS50 MG PO (16:15)
== END 2022-06-14 23:30 | disposition home or self-care (01) ==
LOC: FSED 18:31
DX: R11.2 Nausea with vomiting, unspecified (principal); K29.70 Gastritis, unspecified, without bleeding; E11.621 Type 2 diabetes mellitus with foot ulcer; E11.65 Type 2 diabetes mellitus with hyperglycemia; L97.509 Non-pressure chronic ulcer of other part of unspecified foot with unspecified severity; R10.13 Epigastric pain; R05.9 Cough, unspecified; R09.89 Other specified symptoms and signs involving the circulatory and respiratory systems
CPT/HCPCS: 74176; 80048; 80053; 80076; 82553; 84484; 85025; 99284; J2405; J2550; J7030

== ENCOUNTER 2022-06-15 11:14 | Observation (INO) | payer BC ==
[~2022-06-15] VITALS: Ht 185.4 cm; Wt 122.5 kg
[~2022-06-15 11:14] MED LIST changes: +DICYCLOMINE HCL20 MG PO; +PANTOPRAZOLE SO20 MG PO
[2022-06-15] MEDS ORDERED: SODIUM CHLORIDE 0.9% 1000ML 1,000 ML IV STA (11:42)
[2022-06-15] MEDS ORDERED: ONDANSETRON HCL INJ 2MG/ML 2ML 2 MG/ML VIAL IV STA (11:42)
[2022-06-15] MEDS ORDERED: DICYCLOMINE HCL 20 MG/2 ML VIAL IM ONE (11:45)
[2022-06-15 12:15] LABS: BASOPHILS # (AUTO) 0.1 (0.0-0.1); BASOPHILS % 0.4 % (0.0-1.0); EOSINOPHILS % 0.1 % (0.0-6.0); HEMATOCRIT 39.6 % (38.2-49.6); HEMOGLOBIN 12.7 g/dL (14.0-18.0); LYMPHOCYTES # (AUTO) 1.8 (1.0-3.2); LYMPHOCYTES % 12.7 % (18.0-39.1); MEAN CORPUSCULAR HEMOGLOBIN 28.8 pg (28-32); MEAN CORPUSCULAR HGB CONC 32.1 g/dL (31-35); MEAN CORPUSCULAR VOLUME 89.8 fL (81-99); MONOCYTES # (AUTO) 1.3 (0.2-0.8); MONOCYTES % 8.9 % (4.4-11.3); NEUTROPHILS # (AUTO) 11.2 (2.1-6.9); NEUTROPHILS % 77.5 % (38.7-80.0); PLATELET COUNT 359 x10e3/uL (140-360); RED BLOOD COUNT 4.41 x10e6/uL (4.3-5.7); RED CELL DISTRIBUTION WIDTH 11.9 % (11.7-14.4)
[2022-06-15 12:34] LABS: AMPHETAMINES SCREEN,URINE NEGATIVE (NEGATIVE); BENZODIAZEPINES SCREEN,URINE NEGATIVE (NEGATIVE); PHENCYCLIDINE SCREEN,URINE NEGATIVE (NEGATIVE)
[2022-06-15 12:36] LABS: CLARITY,URINE CLEAR (CLEAR); COLOR,URINE YELLOW (YELLOW); KETONES,URINE NEGATIVE (NEGATIVE); LEUKOCYTE ESTERASE ,URINE NEGATIVE (NEGATIVE); NITRITE,URINE NEGATIVE (NEGATIVE); PROTEIN,URINE DIPSTICK >=300 (NEGATIVE); URINE UROBILINOGEN 0.2 mg/dL (0.2 - 1)
[2022-06-15 12:39] LABS: ALBUMIN 3.9 g/dL (3.5-5.0); ANION GAP 15.8 mmol/L (8-16); CREATININE, SERUM 2.81 mg/dL (0.72-1.25); MAGNESIUM 1.9 MG/DL (1.3-2.1); POTASSIUM 3.8 mmol/L (3.5-5.1)
[2022-06-15 12:46] LABS: BACTERIA,URINE MODERATE /HPF; EPITHELIAL CELLS,URINE MODERATE /LPF; RBC,URINE 0-5 /HPF (0-5); WBC,URINE (MAN) 0-5 /HPF (0-5)
[2022-06-15] MEDS ORDERED: Morphine 4mg INJECTION 4 MG/ML INJ IV PRN (14:15)
[2022-06-15] MEDS ORDERED: ONDANSETRON HCL INJ 2MG/ML 2ML 2 MG/ML VIAL IV PRN (14:15)
[2022-06-15] MEDS: SODIUM CHLORIDE 0.9% 1000ML 1,000 ML IV SCH ×2 (14:44→21:43)
[2022-06-15] MEDS ORDERED: FAMOTIDINE40 MG PO (16:15)
[2022-06-15] MEDS ORDERED: LOSARTAN POTASS50 MG PO (16:15)
[2022-06-15 16:24] LABS: CHOL/HDL RATIO 4.6 (3.9-4.7)
[2022-06-15] MEDS: CEFTRIAXONE 2 GM in SODIUM CHLORIDE 0.9% 100 ML IV SCH (16:26)
[2022-06-15] MEDS: FAMOTIDINE 20 MG/2 ML VIAL IV SCH (16:26)
[2022-06-15] MEDS ORDERED: DEXTROSE 50% SYRINGE 50 ML IV PRN (17:45)
[2022-06-15] MEDS ORDERED: CLONIDINE HCL 0.1 MG TAB PO PRN (18:15)
[2022-06-15 20:00] VITALS: BP 172/97
[2022-06-15 20:10] VITALS: BP 172/97
[2022-06-15 20:25] VITALS: BP 172/97
[2022-06-15 20:30] LABS: CREATINE KINASE MB 2.2 ng/mL (0-5.0)
[2022-06-15] MEDS: HYDROMORPHONE 1MG/1ML INJ IV PRN (21:43)
[2022-06-15] MEDS: PROMETHAZINE 12.5MG/ NACL 0.9% 12.5 MG/50 ML BAG IV PRN (21:44)
[2022-06-15] MEDS: INSULIN LISPRO 100 UNIT/1 ML 3ML VIAL SQ SCH (21:48)
[2022-06-16 01:58] VITALS: BP 147/80
[2022-06-16] MEDS: HYDROMORPHONE 1MG/1ML INJ IV PRN ×3 (04:32→16:10)
[2022-06-16] MEDS: SODIUM CHLORIDE 0.9% 1000ML 1,000 ML IV SCH (04:32)
[2022-06-16 05:52] LABS: BASOPHILS # (AUTO) 0.1 (0.0-0.1); BASOPHILS % 0.6 % (0.0-1.0); EOSINOPHILS # (AUTO) 0.1 (0.0-0.4); EOSINOPHILS % 0.9 % (0.0-6.0); HEMATOCRIT 31.4 % (38.2-49.6); HEMOGLOBIN 10.4 g/dL (14.0-18.0); LYMPHOCYTES # (AUTO) 1.7 (1.0-3.2); LYMPHOCYTES % 16.8 % (18.0-39.1); MEAN CORPUSCULAR HEMOGLOBIN 28.7 pg (28-32); MEAN CORPUSCULAR HGB CONC 33.1 g/dL (31-35); MEAN CORPUSCULAR VOLUME 86.7 fL (81-99); MONOCYTES # (AUTO) 1.1 (0.2-0.8); NEUTROPHILS % 70.1 % (38.7-80.0); PLATELET COUNT 248 x10e3/uL (140-360); RED BLOOD COUNT 3.62 x10e6/uL (4.3-5.7); RED CELL DISTRIBUTION WIDTH 11.9 % (11.7-14.4)
[2022-06-16 05:56] VITALS: BP 184/90
[2022-06-16 06:20] LABS: ALBUMIN 3.2 g/dL (3.5-5.0); ALBUMIN/GLOBULIN RATIO 1.1 (0.8-2.0); ANION GAP 12.5 mmol/L (8-16); CALCIUM 7.9 mg/dL (8.4-10.2); CREATININE, SERUM 2.77 mg/dL (0.72-1.25); POTASSIUM 3.5 mmol/L (3.5-5.1)
[2022-06-16 06:42] LABS: AMYLASE 42 U/L (25-125); LIPASE 30 U/L (8-78)
[2022-06-16 06:50] LABS: CREATINE KINASE MB 1.6 ng/mL (0-5.0)
[2022-06-16] MEDS: INSULIN LISPRO 100 UNIT/1 ML 3ML VIAL SQ SCH ×2 (07:30→11:30)
[2022-06-16] MEDS: PROMETHAZINE 12.5MG/ NACL 0.9% 12.5 MG/50 ML BAG IV PRN (08:52)
[2022-06-16] MEDS: FAMOTIDINE 20 MG/2 ML VIAL IV SCH (08:56)
[2022-06-16] MEDS: CEFTRIAXONE 2 GM in SODIUM CHLORIDE 0.9% 100 ML IV SCH (08:56)
[2022-06-16] MEDS ORDERED: LOSARTAN POTASSIUM 100 MG TAB PO SCH (10:00)
[2022-06-16] MEDS ORDERED: POTASSIUM CHLORIDE 10MEQ EA PO ONE (10:00)
[2022-06-16 12:13] LABS: CREATINE KINASE MB 1.8 ng/mL (0-5.0)
[2022-06-16 12:34] VITALS: BP 183/96
[2022-06-16 16:36] VITALS: BP 172/86
== END 2022-06-16 17:22 | disposition home or self-care (01) ==
LOC: ER 11:40 → ERHOLD 14:09 → MED/SURG2 17:51
PROVIDERS: ADMIT Internal Medicine; ATTEND Internal Medicine
DX: J18.9 Pneumonia, unspecified organism (principal); E11.22 Type 2 diabetes mellitus with diabetic chronic kidney disease; I13.10 Hypertensive heart and chronic kidney disease without heart failure, with stage 1 through stage 4 chronic kidney disease, or unspecified chronic kidney disease; N18.30 Chronic kidney disease, stage 3 unspecified; Z79.4 Long term (current) use of insulin; E78.5 Hyperlipidemia, unspecified; E55.9 Vitamin D deficiency, unspecified; D63.1 Anemia in chronic kidney disease; F32.9 Major depressive disorder, single episode, unspecified; E66.09 Other obesity due to excess calories; Z68.35 Body mass index [BMI] 35.0-35.9, adult; N17.9 Acute kidney failure, unspecified; R11.2 Nausea with vomiting, unspecified; T44.4X5A Adverse effect of predominantly alpha-adrenoreceptor agonists, initial encounter; E11.43 Type 2 diabetes mellitus with diabetic autonomic (poly)neuropathy; K31.84 Gastroparesis; E11.319 Type 2 diabetes mellitus with unspecified diabetic retinopathy without macular edema; E11.40 Type 2 diabetes mellitus with diabetic neuropathy, unspecified
CPT/HCPCS: 36415 ×2; 71045; 71046; 80053 ×2; 80061; 80307; 81001; 82150; 82550 ×2; 82553 ×2; 82948 ×2; 83605; 83690 ×2; 83735; 84484 ×2; 85025 ×2; 87040; 87086; 93005 ×2; 94799; 99284; C9113 ×2; G0378 ×2; J0500; J0696 ×2; J1170 ×2; J2270; J2405; J2550 ×2; J7030 ×2; J7050 ×2; U0002

== ENCOUNTER 2024-05-05 04:34 | Emergency (ER) | payer BC ==
[~2024-05-05] VITALS: Ht 185.4 cm; Wt 122.5 kg
[~2024-05-05 04:34] MED LIST changes: +FAMOTIDINE40 MG PO; +LOSARTAN POTASS50 MG PO
[2024-05-05 04:41] VITALS: PULSE 86; RESP 18; TEMP 97.7; O2SAT 99
[2024-05-05] MEDS ORDERED: MEDROL4 M2 PO (04:54)
[2024-05-05] MEDS ORDERED: LISINOPRIL40 MG PO (04:54)
== END 2024-05-05 05:02 | disposition home or self-care (01) ==
LOC: ER 04:45
DX: H91.91 Unspecified hearing loss, right ear (principal)
CPT/HCPCS: 99282